=== PATIENT | male | born 2000 | race Caucasian/White ===

== ENCOUNTER 2024-04-18 12:22 | Emergency (ER) | payer OTHER, SELFPAY ==
[2024-04-18 12:26] VITALS: BP 124/89
[2024-04-18] MEDS: MOTRIN 600 MG PO (13:18)
--- NOTE | 2024-04-18 13:20 | ED.MUSCINJ ---
HPI-Injury
General
Chief Complaint: Musculo-Skeletal Complaint
Source: patient
Exam Limitations: none
Time Seen by Provider: 04/18/24 12:39
Nursing documentation reviewed up to this point in time: agreed with
History of Present Illness-Injury
Is this injury a work related problem?: No
Is pt an associate of [facility]/[place]?: No
Initial Injury comments:
Patient states he fell approx 10ft from ladder. Denies hitting his head. Complains of pain to left wrist. Injuy occurred just [employer]
Past History
Past History
ED Past Medical History: Other (cystic fibrosis)
Review of Systems
Review of Systems
Allergies reviewed?: Yes
All Other Systems: ROS reviewed and negative except as documented in HPI and ROS
Constitutional: Reports no symptoms
Musculoskeletal: Reports joint pain (pain to left wrist.)
Skin: Reports no symptoms
Neurological: Reports no symptoms
Psychiatric: Reports no symptoms
Musculoskeletal Injury Exam
Musculoskeletal Injury Exam
Left Wrist:
Pain with Movement?: Moderate
Tender to palpation?: Moderate
Soft tissue swelling?: Moderate
External deformity and angulation?: Moderate
Joint effusion?: None
Contusion?: None
Hematoma-local bleeding into tissue?: Moderate
Strain- Sprain- Tear (Connective tissue injury)?: Moderate
Crepitus with movement?: No
Joint instability?: No
Malalignment/deformity?: Yes
Range of motion: Limited
Distal skin color and temperature: normal-warm & good color
Capillary Refill: normal
Normal distal neurovascular exam?: Yes
Peripheral Pulses: radial (right): 3+
Phy Exam
General Physical Exam
General Presentation: well appearing and moderate distress
General age: appears stated age
General Skin: warm and dry
General Habitus: normal
General Mental: alert
General Hydration: appears well hydrated
Musculoskeletal Exam
Musculoskeletal Exam: neuro vasc intact
Skin Exam
Skin Exam: normal color, warm/dry and no rash
Psychiatric Exam
Psychiatric Exam: normal mood/affect
Injury Course
Orders/Labs/Results
Orders:
Orders
04/18/24 12:30
Wrist, Left 3 Views CR [CR Wrist - Left Min 3 Views] Urgent
Comment:
Reason For Exam: pain/fall
04/18/24 12:58
Wrist, Left 3 Views CR [CR Wrist - Left Min 3 Views] Urgent
Comment:
Reason For Exam: Post reduction
04/18/24 13:13
Sling Left-Treatment ONCE
[place] Left-Treatment ONCE
04/18/24 13:15
Ibuprofen [Motrin] 600 mg PO NOW STA
*Radiology
Radiology exam reviewed: radiology read reviewed
*Pulse Oximetry
Patient hypoxic: no
*Critical Care Note
Total Time (30-74mins, 75-104mins- exclusive of procedures): Not Applicable
Update Note
Update Note:
Hematoma block with Lidocaine 1% and reduction of angulated comminuted distal radius fx attempted bedside with satisfactory results. Splint and sling applied. He is discharged home and will follow up with ortho for further management of this fx.
Dr. Munoz notified of injury via tiger text, xrays sent. Patient requesting [facility] follow-up
ED Attending Note
-
Portions of this chart may have been created with voice recognition software.� Occasional wrong word or��sound alike� substitutions may have occurred due to the inherent limitations of voice recognition software.
Discharge Plan
Departure
Patient Disposition: Home (Routine Discharge)
Date of Disposition: 04/18/24
Time of Disposition: 13:26
Patient with high blood pressure during this ER visit?: No
Condition: Good
Covid-19: Not Applicable
Discharge Problem:
Distal radial fracture
Instructions: Ibuprofen, Using Cold for Pain, Splint Care, Wrist fracture
Referrals:
Sang Munoz MD [Active] - Tomorrow
Morgan Duron DO [Family Provider] -
Interventions
Interventions:
*Risk Screen - Suicide Last Done: 04/18/24 12:26
*General Assessment Last Done: 04/18/24 12:26
*Neglect/Abuse Screening Last Done: 04/18/24 12:26
ED- Fall Risk Assessment Last Done: 04/18/24 13:08
ED-Musculoskeletal Assessment Last Done: 04/18/24 13:08
Discharge Date and Time
Print Language: [id number]
[2024-04-18 13:37] VITALS: BP 126/76
== END 2024-04-18 13:38 | disposition home or self-care (01) ==
LOC: EMR 12:22
PROVIDERS: EMERGENCY PHYSICIAN Emergency Medicine; FAMILY PHYSICIAN Family Medicine
DX: S52.592A Other fractures of lower end of left radius, initial encounter for closed fracture (principal); W11.XXXA Fall on and from ladder, initial encounter
CPT/HCPCS: 99285; 25605; 73110